=== PATIENT | male | born 1990 | race Caucasian/White ===

== ENCOUNTER 2017-03-24 23:49 | Emergency (ER) | payer BC, OTHER ==
[2017-03-25] MEDS ORDERED: MECLIZINE HCL25 M3 PO ×2 (00:13→01:16)
[2017-03-25] MEDS ORDERED: VALIUM5 M1 PO (01:16)
[2017-03-25] MEDS ORDERED: PROTONIX40 M2 PO (01:16)
[2017-03-25] MEDS ORDERED: COMPAZINE10 MG PO (01:16)
== END 2017-03-25 01:36 ==
LOC: EDMED 23:49
DX: R42 Dizziness and giddiness (principal); K92.0 Hematemesis
CPT/HCPCS: C9113; J0780; J1200; J3360